=== PATIENT | male | born 1950 | race Caucasian/White ===

== ENCOUNTER → 2016-12-21 | Outpatient (CLI) | payer BC ==
[2016-12-21 13:17] LABS: HEMATOCRIT 39.6 % (42-52); MEAN CELL VOLUME 94.3 fL (80-100); MEAN CORPUSCULAR HEMOGLOBIN 32.9 pg (25-34); MEAN CORPUSCULAR HGB CONC 34.8 g/dl (32-36); MEAN PLATELET VOLUME 9.6 fL (7.4-10.4); PLATELET COUNT 236 K/uL (130-400); WHITE BLOOD COUNT 9.76 K/uL (4.8-10.8)
[2016-12-21 14:07] LABS: FERRITIN 145.9 ng/ml (8.0-388.0); THYROID STIMULATING HORMONE 1.93 uIu/ml (0.300-4.500)
== END | disposition home or self-care (01) ==
LOC: C.LAB 11:35
DX: E03.9 Hypothyroidism, unspecified (principal); E61.1 Iron deficiency

== ENCOUNTER → 2017-10-04 | Outpatient (CLI) | payer BC | END | disposition home or self-care (01) | LOC: C.LAB 11:23 | DX: E03.9 Hypothyroidism, unspecified (principal) ==

== ENCOUNTER → 2017-11-15 | Outpatient (CLI) | payer BC ==
[2017-11-15 12:14] LABS: HEMATOCRIT 42.1 % (42-52); HEMOGLOBIN 14.8 g/dL (14.0-18.0); MEAN CELL VOLUME 94.2 fL (80-100); MEAN CORPUSCULAR HEMOGLOBIN 33.1 pg (25-34); MEAN CORPUSCULAR HGB CONC 35.2 g/dl (32-36); MEAN PLATELET VOLUME 9.7 fL (7.4-10.4); PLATELET COUNT 225 K/uL (130-400); RED CELL DISTRIBUTION WIDTH CV 12.6 % (11.5-14.5); RED CELL DISTRIBUTION WIDTH SD 43.3 fL (36.4-46.3); WHITE BLOOD COUNT 11.73 K/uL (4.8-10.8)
== END | disposition home or self-care (01) ==
LOC: C.LAB 10:29
DX: D64.9 Anemia, unspecified (principal); E03.9 Hypothyroidism, unspecified